=== PATIENT | male | born 1995 | race Two or more races ===

== ENCOUNTER 2020-01-22 22:32 | Emergency (ER) | payer BC, SELFPAY ==
[2020-01-22 22:33] VITALS: BP 158/90; PULSE 65; RESP 18; TEMP 36.2; O2SAT 100; BMI 26.9
--- NOTE | 2020-01-22 23:09 | CT_ITS ---
STUDY: CT ABDOMEN AND PELVIS WITHOUT CONTRAST REASON FOR EXAM: Male, 24 years old. LEFT FLANK PAIN WITH N/V, HX KS AND APPY RADIATION DOSAGE (If Supplied By Facility): CTDIvol = ( 6.14 ) mGy, DLP = ( 280.75 ) mGycm TECHNIQUE: Transaxial images were obtained from the dome of the diaphragm to the symphysis pubis without oral contrast, and without intravenous contrast. Sagittal and coronal images were reconstructed. Individualized dose optimization techniques were used for this CT. COMPARISON: None. FINDINGS: The visualized lung bases are unremarkable. The visualized portions of the heart are within normal limits. Normal liver. Normal gallbladder and extrahepatic biliary system. Normal spleen. Normal pancreas. Right adrenal calcifications. Up to 10 mm stones in the right kidney. Up to 3 mm stones in the left kidney. Mild right left hydronephrosis with a proximal left ureteral stone noted measuring 3 mm in the level of the L3 superior endplates. Normal visualized stomach. Normal small intestine. Normal colon. The appendix is not visualized. Normal abdominal aorta. Normal inferior vena cava. Normal retroperitoneum. Normal urinary bladder. Normal abdominal wall. Normal osseous structures. CT/Abdomen/Pelvis without Cont IMPRESSION: Bilateral renal calculi. Left hydronephrosis with proximal left hydroureter. An obstructing stone is noted within the left mid ureter. Right adrenal calcifications. Electronically Signed: Judah Maldonado DO at 23:53 EDT Tel [phone], Service support ,
--- NOTE | 2020-01-22 23:09 | ED.DCSUM_ITS ---
History of Present Illness Chief Complaint: Flank Pain Informant: Patient Onset: Today Context: Sudden Onset Timing: Continuous Narrative: Patient is a 24-year-old male presenting with 2 hours of stabbing left flank pain. He states it feels like his prior kidney stones. He associated nausea and said 3 because of vomiting. He tried to sleep but did not help so he came to the emergency room. States he is been noted kidney stone since he was 13 years old. He states he never required any instrumentation to pass the stone. States the pain radiates into his lower left abdomen. He denies any urinary symptoms. Denies any associated testicular pain. He states his bowel movements been normal. No other complaints at this time. Past Medical History - Allergies and Home Meds Allergies/Adverse Reactions: Allergies No Known Allergies Allergy (Verified 01/22/20 22:35) Primary Care Physician: NOT,DEFINED [NON-STAFF] - Past Medical History: - - Kidney stones Surgical History: no surgical history Smoking Status: Current every day smoker Review of Systems General: Denies: Chills, Fever, Sweats Eyes: Denies: Visual changes - bilaterally, Diplopia ENT: Denies: Rhinorrhea, Sore throat Cardiovascular: Denies: Chest pain, Palpitations Respiratory: Denies: Dyspnea, Cough, Dyspnea on exertion Gastrointestinal: Reports: Abdominal pain - Left flank, Nausea, Vomiting. Denies: Diarrhea, Melena, Hematochezia Genitourinary: Denies: Dysuria, Hematuria, Frequency Musculoskeletal: Denies: Back pain, Extremity Pain Skin: Denies: Rash, Wounds Neurological: Denies: Headache, Weakness, Numbness Physical Exam Vital Signs/Narrative: Vital Signs Temp Pulse Resp BP Pulse Ox 01/22/20 22:33 97.2 F L 65 18 158/90 H 100 Inital Vital Signs reviewed: Yes General: Well nourished, Well developed, No Acute Distress Head: Normocephalic, Atraumatic Eyes: Perrl, EOMI ENT: Moist mucous membranes, No rhinorrhea Neck: Supple, Nontender Cardiovascular: Regular rate, Regular rhythm, No murmurs Respiratory: No distress, CTA bilaterally, Chest nontender Abdomen: Soft, Nondistended, Normal bowel sounds, Tender - Tenderness in the left lower quadrant Back: Nontender, Normal Inspection, - - Tenderness to palpation of the left lower back. Negative for: CVA tenderness Extremities: Nontender, No edema Skin: Normal color, No rash Neurological: Alert, Oriented x3, Cranial nerves II-XII grossly intact, Normal Strength, Normal Sensation Psychological: Normal affect, Normal Mood Diagnostic/Tx/Re-eval Clinical Impression(s) from Imaging Studies Abdomen/Pelvis CT 01/22/20 23:09 IMPRESSION: Bilateral renal calculi. Left hydronephrosis with proximal left hydroureter. An obstructing stone is noted within the left mid ureter. Right adrenal calcifications. Electronically Signed: Judah Maldonado DO at 23:53 EDT Tel [phone], Service support , Laboratory Data 01/22/20 01/22/20 01/22/20 23:00 23:04 23:04 WBC 9.7 RBC 5.02 Hgb 15.1 Hct 43.1 MCV 85.9 MCH 30.1 MCHC 35.0 RDW Std Deviation 38.3 RDW Coeff of Ac 12.1 Plt Count 341 MPV 10.8 Immature Gran % (Auto) 0.300 Neut % (Auto) 42.8 L Lymph % (Auto) 45.5 H Callahan % (Auto) 8.0 Eos % (Auto) 2.8 Baso % (Auto) 0.6 Absolute Neuts (auto) 4.2 Absolute Lymphs (auto) 4.43 Nucleated RBC % 0 Sodium 139 Potassium 3.5 Chloride 106 Carbon Dioxide 27.0 Anion Gap 6 BUN 20 H Creatinine 1.30 Estim Creat Clear Calc 76.88 Est GFR (MDRD) Af Amer 88 Est GFR (MDRD) Non-Af 73 BUN/Creatinine Ratio 15.4 Glucose 105 Calcium 9.3 Total Bilirubin 0.50 AST 15 ALT 41 Alkaline Phosphatase 79 Total Protein 8.1 Albumin 4.3 Globulin 3.8 Albumin/Globulin Ratio 1.1 Urine Color Yellow Urine Clarity Sl. Cloudy Urine pH 7.0 Ur Specific [place] 1.015 Urine Protein 30 H Urine Glucose (UA) Normal Urine Ketones Negative Urine Occult Blood 250 H Urine Nitrite Negative Urine Bilirubin Negative Urine Urobilinogen Normal Ur Leukocyte Esterase 25 H Urine RBC 25-50 SEEN Urine WBC 0-5 SEEN Ur Squamous Epith Cells 0 SEEN Urine Bacteria 0 SEEN Urine Mucus 0 SEEN - Medical Decision Making Patient is evaluated for sudden onset of left flank pain. He has a history of kidney stones and states this feels like prior ones. He states he is never required instrumentation. 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 I do not have any prior records to review. Because of this I will obtain a CT flank as well as basic labs and urinalysis. Urinalysis does not show infection but does show blood which is consistent with a kidney stone. Patient is actually found to have 1 large stone in his right kidney which is nonobstructive as well as obstructive 3 mm stone in the left ureter with some mild hydronephrosis. Patient has normal kidney function. He is given Toradol and Zofran for symptoms and has improvement. We discharged home with medications for symptomatic treatment as well as instructions to follow-up with his urologist back in [place]. Patient is given a copy of his CT report. Patient is counseled on signs and symptoms requiring return to the emergency room. Patient verbalizes agreement and understand this plan. Patient discharged home in stable and improved condition. ED Disposition - Plan for ED Patient: Disposition: Home or Assisted Living Diagnosis: Calculus of right kidney, Renal colic on left side Instructions: ED Renal Stone w Colic Prescriptions: Tamsulosin HCl [Flomax] 0.4 mg PO DAILY #7 cap Prescription Printed Ibuprofen [Motrin] 600 mg PO Q6H PRN PRN #20 tab PRN Reason: Pain Score 1-10/10 Prescription Printed Hydrocodone Bitart/Apap 5-325 [[place] 5MG-325MG] 1 tab PO Q6H PRN PRN 3 Days #10 tab PRN Reason: Pain Prescription Printed Ondansetron [Zofran Odt] 4 mg PO Q8H PRN PRN #10 tab PRN Reason: Nausea Prescription Printed Referrals: NOT,DEFINED [NON-STAFF] - Additional Instructions: Please follow-up with your urologist. Drink plenty of fluids. Return the emergency room with worsening symptoms.
[2020-01-22 23:10] LABS: Bacteria 0 SEEN /hpf (None Seen); Mucous, Urine 0 SEEN /hpf (<or=2+); Squamous Epithelial Cells - UA 0 SEEN /hpf (0-5)
[2020-01-22 23:17] LABS: Absolute Lymphocyte Count 4.43 X10^3/uL (0.83-4.51); Absolute Neutrophil Count 4.2 X10^3/uL (2.0-7.7); Basophil# 0.06 X10^3/uL; Basophil% 0.6 % (0-1); Eosinophil# 0.27 X10^3/uL; Eosinophils% 2.8 % (0-5); Hematocrit 43.1 % (40-54); Hemoglobin 15.1 g/dL (13.0-16.5); Lymphocyte # 4.43 X10^3/ul (4.0); Lymphocyte % 45.5 % (19-41); Mean Corpuscular Hgb 30.1 pg (27.0-32.0); Mean Corpuscular Volume 85.9 fL (80-94); Mean Platelet Vol. 10.8 fl (6.2-12.0); Monocyte# 0.78 X10^3/uL; NRBC Flagged by Analyzer 0 % (0-5); Neutrophil # 4.17 X10^3/uL (2.7-7.7); Neutrophil % 42.8 % (47-70); Platelet Count 341 K/mm3 (150-450); RBC Distribution Width CV 12.1 % (11.6-14.6); RBC Distribution Width SD 38.3 fl (35.1-43.9); Red Blood Count 5.02 M/mm3 (4.6-6.2); White Blood Count 9.7 K/mm3 (4.4-11.0)
[2020-01-22 23:26] LABS: Color, Urine Yellow (Yellow); Glucose, Dipstick Normal (Normal); Ketone-Dipstick Negative (Negative); Leukocyte Esterase-Dipstick 25 /ul (Negative); Nitrite-Dipstick Negative (Negative); Occult Blood-Urine 250 /ul (Negative); Protein-Dipstick 30 mg/dl (Negative); Specific Gravity, Urine 1.015 (1.002-1.030); Urine Bilirubin Dipstick Negative (Negative); Urine Clarity Sl. Cloudy (Clear); Urine Urobilinogen Normal (Normal)
[2020-01-22 23:43] LABS: ALB/GLOB Ratio 1.1 RATIO (0.9-2.4); AST(SGOT) 15 U/L (15-37); Alanine Aminotransfer ALT/SGPT 41 U/L (16-61); Albumin, Serum 4.3 g/dL (3.2-5.0); Alkaline Phosphatase 79 U/L (45-117); Anion Gap 6 (5-15); BUN 20 mg/dL (7-18); BUN/Creat Ratio 15.4 RATIO (10-20); Calcium,Total 9.3 mg/dL (8.5-10.1); Chloride 106 mmol/L (98-107); EST Glomerular Filtration Rate 73 mL/min (>60); Est Glom Filt Rate - Afr Amer 88 mL/min (>60); Estimated Creatinine Clearance 76.88 ml/min; Globulin 3.8 g/dL (2.2-4.2); Glucose 105 mg/dL (74-106); Potassium 3.5 mmol/L (3.5-5.1); Protein, Total 8.1 g/dL (6.4-8.2); Sodium Level 139 mmol/L (136-145)
[2020-01-22 23:58] LABS: Red Blood Cells-Urine 25-50 SEEN /hpf (0-5); White Blood Cells 0-5 SEEN /hpf (0-5)
[2020-01-23] MEDS: Ondansetron 4 MG/2 ML Vial IV (00:06)
[2020-01-23] MEDS: Ketorolac 15 MG/ML Vial IV (00:06)
[2020-01-23 01:25] VITALS: BP 148/60; PULSE 82; RESP 18; O2SAT 96
== END 2020-01-23 01:27 | disposition home or self-care (01) ==
PROVIDERS: Emergency Provider Emergency Medicine
DX: N13.2 Hydronephrosis with renal and ureteral calculous obstruction (principal); F17.200 Nicotine dependence, unspecified, uncomplicated; Z87.442 Personal history of urinary calculi
CPT/HCPCS: 74176; 80053; 81001; 85025; 96374; 96375; 99284; A4216; J2405

== ENCOUNTER 2021-11-01 03:23 | Emergency (ER) | payer BC, SELFPAY ==
[2021-11-01 03:23] VITALS: BP 139/94; PULSE 94; RESP 16; TEMP 36.4; O2SAT 96; BMI 26.1
[2021-11-01 03:37] LABS: Hematocrit 39.2 % (40-54); Hemoglobin 13.6 g/dL (13.0-16.5); Red Blood Count 4.55 M/mm3 (4.6-6.2); White Blood Count 6.9 K/mm3 (4.4-11.0)
[2021-11-01] MEDS: 0.9% Normal Saline 1,000 ML 1000 ML IV (03:37)
[2021-11-01 03:38] LABS: Absolute Lymphocyte Count 3.69 X10^3/uL (0.83-4.51); Absolute Neutrophil Count 2.4 X10^3/uL (2.0-7.7); Basophil# 0.05 X10^3/uL; Basophil% 0.7 % (0-1); Eosinophil# 0.31 X10^3/uL; Eosinophils% 4.5 % (0-5); Lymphocyte # 3.69 X10^3/ul (0.83-4.51); Lymphocyte % 53.7 % (19-41); Mean Corp Hgb Conc 34.7 g/dL (32-36); Mean Corpuscular Hgb 29.9 pg (27.0-32.0); Mean Corpuscular Volume 86.2 fL (80-94); Mean Platelet Vol. 10.3 fl (6.2-12.0); Monocyte% 5.8 % (0-10); NRBC Flagged by Analyzer 0 % (0-5); Neutrophil # 2.38 X10^3/uL (2.7-7.7); Neutrophil % 34.7 % (47-70); Platelet Count 389 K/mm3 (150-450); RBC Distribution Width CV 12.5 % (11.6-14.6); RBC Distribution Width SD 39.2 fl (35.1-43.9)
[2021-11-01 03:40] LABS: Color, Urine Yellow (Yellow); Glucose, Dipstick Normal (Normal); Ketone-Dipstick Negative (Negative); Leukocyte Esterase-Dipstick 25 /ul (Negative); Mucous, Urine 0 SEEN /hpf (<or=2+); Nitrite-Dipstick Negative (Negative); Occult Blood-Urine 250 /ul (Negative); Protein-Dipstick 30 mg/dl (Negative); Squamous Epithelial Cells - UA 0 SEEN /hpf (0-5); Urine Bilirubin Dipstick Negative (Negative); Urine Clarity Clear (Clear); Urine Urobilinogen Normal (Normal); White Blood Cells 0 SEEN /hpf (0-5)
--- NOTE | 2021-11-01 03:40 | RAD_ITS ---
EXAM: XR ABDOMEN, 1 VIEW CLINICAL INDICATION: Right flank pain history kidney stone TECHNIQUE: Frontal supine view of the abdomen/pelvis. This report was created using [facility] report generation technology. COMPARISON: None. FINDINGS: LOWER THORAX: No acute pathology. GASTROINTESTINAL TRACT: Unremarkable. Non-obstructive. No bowel or stomach distention. ORGANS: 5 mm faint calcific density which may indicate a proximal ureteral stone at the level of the right L3 transverse process. Several small calcific densities in the region of the right renal collecting system measuring up to 4 mm. No organomegaly. BONES/JOINTS: No acute pathology. SOFT TISSUES: No acute pathology. RAD/Abdomen Single View (Portable) IMPRESSION: 1. There is a 5 mm faint calcific density which may indicate a proximal ureteral stone at the level of the right L3 transverse process. 2. Several small calcific densities in the region of the right renal collecting system measuring up to 4 mm. Findings consistent with nephrolithiasis. Electronically Signed: Sanju Ly MD at 4:30 EDT ,
[2021-11-01] MEDS: Ondansetron 4 MG/2 ML Vial IV (03:47)
[2021-11-01] MEDS: Ketorolac 15 MG/ML Vial IV (03:47)
[2021-11-01 03:51] LABS: Anion Gap 5 (5-15); BUN 13 mg/dL (7-18); BUN/Creat Ratio 10.6 RATIO (10-20); Calcium,Total 8.7 mg/dL (8.5-10.1); Chloride 106 mmol/L (98-107); Creatinine, Serum 1.23 mg/dL (0.70-1.30); EST Glomerular Filtration Rate 76 mL/min (>60); Est Glom Filt Rate - Afr Amer 92 mL/min (>60); Estimated Creatinine Clearance 83.57 ml/min; Glucose 92 mg/dL (74-106); Potassium 3.6 mmol/L (3.5-5.1); Sodium Level 139 mmol/L (136-145)
--- NOTE | 2021-11-01 03:56 | EDS_ITS ---
HPI History of Present Illness Chief Complaint: Flank Pain Informant: patient Narrative Narrative: Patient states he is having primarily right flank pain. A couple times his urine has been dark but does not anymore. He when the pain is bad he gets some nausea but has never had vomiting. He has not had fevers or chills. This patient has a history of kidney stones. He states he drinks water a lot and will not uncommonly passed small stones. He was seen here before and had a distal ureteral stone but also other stones in both kidneys. His current symptoms have been waxing and waning for about a month. He just got back from [place] yesterday. He was seen while in [place] about a week ago. He states they did blood work and a CAT scan. They did see a stone and it sounds like it was at the distal ureter on the right. He states he does not remember how big it was. He was calling to make arrangements to see a urologist starting tomorrow as he just got back in town. The reason he came in tonight he has had another bad episode of pain. The pain is now better but still there. It sounds like he has never required stenting or lithotripsy. He has had prior appendectomy when young. [facility] Medical History Kidney stones Home Medications ibuprofen 600 mg PO Q6H PRN PRN #20 tab 01/23/20 [Rx Last Taken Unknown] naproxen 500 mg PO BID #14 tab 11/01/21 [Rx Last Taken Unknown] ondansetron 4 mg PO Q8H PRN #10 tab 11/01/21 [Rx Last Taken Unknown] oxycodone-acetaminophen [Percocet] 1 tab PO Q6H PRN 3 Days #10 tab 11/01/21 [Rx Last Taken Unknown] tamsulosin [Flomax] 0.4 mg PO DAILY #10 cap 11/01/21 [Rx Last Taken Unknown] Allergy/AdvReac Type Severity Reaction Status Date / Time No Known Allergies Allergy Verified 11/01/21 03:38 Social History Smoking Status: Current some day smoker tobacco type: cigarettes ROS ROS ED Constitutional Constitutional ED: Denies chills or fever(s) ENT ENT ED: Denies rhinorrhea Cardiovascular Cardiovascular: Denies chest pain or palpitations Respiratory/Chest Respiratory/Chest: Denies cough or dyspnea Gastrointestinal Gastrointestinal: Reports abdominal pain and nausea; Denies constipation, diarrhea or vomiting Genitourinary Genitourinary ED: Reports other Details: Urine has been dark at times. He is not sure if it was blood or not. ; Denies dysuria or urinary frequency Musculoskeletal Musculoskeletal: Reports back pain and other Details: Right flank pain Integumentary Denies rash Neurologic Neurologic: Denies paresthesias Endocrine Endocrinology: Denies polydipsia or polyuria Allergic/Immunologic Allergic/Immunologic ED: Denies urticaria EXAM Physical Exam Const Vital Signs: 11/01/21 03:23 Temperature 97.5 F L Temperature Source Oral Pulse Rate 94 Respiratory Rate 16 Blood Pressure 139/94 H Blood Pressure Mean 109 Pulse Ox 96 Oxygen Delivery Method Room Air Positive well nourished and well developed General Appearance ED: well developed and NAD; Negative for cyanotic or diaphoretic HEENT Reports moist mucous membranes Eyes General Eye ED: Negative for pale conjunctiva or scleral icterus Neck no JVD Chest Wall inspection of chest normal Resp normal respiratory effort and clear to auscultation bilaterally Cardio regular rate and regular rhythm GI normal to inspection, nondistended, normoactive bowel sounds, non-tender and non-distended Auscultation: normoactive bowel sounds Palpation: soft Back/Spine Back/Spine Narrative: Mild right-sided CVA tenderness. General Back: CVA tenderness Extremity normal to inspection Neuro Sensorium / Orientation: alert Psych mental status grossly normal Skin no rashes or lesions noted Skin Narrative: No vesicles. MDM MDM MDM Narrative Medical decision making narrative: Patient states his nausea is gone. His pain is much better now. He is comfortable following up. Patient really did not want a repeat CAT scan I think that is reasonable in this case. CBC is overall normal. Electrolytes are unremarkable. Urine does show red cells but no sign of infection. X-ray hints of the stone on the right side. I will send patient home with medicines for pain nausea as well as Flomax. We will have him follow- up with urology. Lab Data Attestation: I reviewed the patient's lab results. Labs: Laboratory Results - last 24 hr 11/01/21 11/01/21 11/01/21 03:30 03:30 03:35 WBC 6.9 RBC 4.55 L Hgb 13.6 Hct 39.2 L MCV 86.2 MCH 29.9 MCHC 34.7 RDW Std Deviation 39.2 RDW Coeff of Ac 12.5 Plt Count 389 MPV 10.3 Immature Gran % (Auto) 0.600 Neut % (Auto) 34.7 L Lymph % (Auto) 53.7 H [place] % (Auto) 5.8 Eos % (Auto) 4.5 Baso % (Auto) 0.7 Absolute Neuts (auto) 2.4 Absolute Lymphs (auto) 3.69 Nucleated RBC % 0 Sodium 139 Potassium 3.6 Chloride 106 Carbon Dioxide 28.0 Anion Gap 5 BUN 13 Creatinine 1.23 Estim Creat Clear Calc 83.57 Est GFR (MDRD) Af Amer 92 Est GFR (MDRD) Non-Af 76 BUN/Creatinine Ratio 10.6 Glucose 92 Calcium 8.7 Urine Color Yellow Urine Clarity Clear Urine pH 6.0 Ur Specific [place] 1.010 Urine Protein 30 H Urine Glucose (UA) Normal Urine Ketones Negative Urine Occult Blood 250 H Urine Nitrite Negative Urine Bilirubin Negative Urine Urobilinogen Normal Ur Leukocyte Esterase 25 H Urine RBC 10-25 SEEN Urine WBC 0 SEEN Ur Squamous Epith Cells 0 SEEN Urine Bacteria 1+ Hyaline Casts 0-5 SEEN Urine Mucus 0 SEEN Radiography Diagnostic Testing: Clinical Impression(s) from Imaging Studies KUB X-Ray 11/01/21 03:40 IMPRESSION: 1. There is a 5 mm faint calcific density which may indicate a proximal ureteral stone at the level of the right L3 transverse process. 2. Several small calcific densities in the region of the right renal collecting system measuring up to 4 mm. Findings consistent with nephrolithiasis. Electronically Signed: Sanju Ly MD at 4:30 EDT , Discharge Plan Triage Chief Complaint: Flank Pain ED Provider: Sanford Young Dx/Rx/DC Orders Clinical Impression: Ureteral colic, Right kidney stone Instructions: ED Kidney Stone w/ Colic Prescriptions: New oxycodone-acetaminophen [Percocet] 5-325 mg tablet 1 tab PO Q6H PRN (Reason: pain) 3 Days Qty: 10 RF: 0 ondansetron 4 mg tablet,disintegrating 4 mg PO Q8H PRN (Reason: nausea and vomiting) Qty: 10 RF: 0 naproxen 500 MG tablet 500 mg PO BID Qty: 14 RF: 0 tamsulosin [Flomax] 0.4 mg capsule 0.4 mg PO DAILY Qty: 10 RF: 0 No Action ibuprofen 600 MG tablet 600 mg PO Q6H PRN PRN (Reason: Pain Score 1-10/10) Qty: 20 RF: 0 Primary Care Provider: NOT,DEFINED Referrals: Flavio Steven MD [STAFF PHYSICIAN] - As soon as possible NOT,DEFINED [Primary Care Provider] - Disposition Disposition: Home, Self Care
[2021-11-01 04:07] LABS: Bacteria 1+ /hpf (None Seen); Hyaline Cast 0-5 SEEN /lpf (0-5); Red Blood Cells-Urine 10-25 SEEN /hpf (0-5)
== END 2021-11-01 05:46 | disposition home or self-care (01) ==
PROVIDERS: Emergency Provider Emergency Medicine; Visit Provider Emergency Medicine
DX: N20.2 Calculus of kidney with calculus of ureter (principal); R82.89 Other abnormal findings on cytological and histological examination of urine; F17.210 Nicotine dependence, cigarettes, uncomplicated; Z87.442 Personal history of urinary calculi
CPT/HCPCS: 74018; 80048; 81001; 85025; 96361; 96374; 96375; 99282; J7030; A4216; J2405